=== PATIENT | male | born 1960 | race Caucasian/White ===

== ENCOUNTER 2018-06-17 18:26 | Emergency (ER) | payer BC, OTHER ==
[~2018-06-17] VITALS: Ht 180.3 cm; Wt 84.9 kg
[~2018-06-17 18:26] MED LIST: CLON1TAB5 PO; FLUT0.0529 NAE; OMEP40CA PO; SERT-234 PO
[2018-06-17 18:28] VITALS: TEMP 36.7; Ht 180.3 cm; Wt 84.9 kg
[2018-06-17] MEDS ORDERED: ONDANSETRON INJ 2 MG/ML 2 ML VIAL IV STA (18:42)
[2018-06-17] MEDS ORDERED: MoRPHine SULFATE 4 MG/ML 1 ML CARP\\VIAL IV STA (18:42)
[2018-06-17] MEDS ORDERED: OPTIRAY 320 IV PRN (18:45)
--- NOTE | 2018-06-17 18:52 | EMERGENCY ROOM VISIT NOTE ---
History Report prepared by Cally: Vikram Banerjee Under the Supervision of: Dr. Javier Pablo M.D. First contact with patient: 18:31 Chief Complaint: FLANK PAIN Stated Complaint: UPPER R FLANK PAIN POST SURGERY History of Present Illness The patient is a 58 year old male who presents to the Emergency Room with complaints of worsening RUQ abdominal pain that began today. Patient states the pain is worsened with deep breaths and movement. He adds he had a bowel resection and hernia repair 22 days ago at [facility]. He states the surgery was performed by Dr. Mcginnis. Patient adds he also had a colostomy bag placed. He states he was discharged from the hospital 15 days ago. He adds that two surgical danielle fell out yesterday. Past medical history includes an appendectomy which he states his pain feels similar to. He adds he has intermittent nausea. Patient adds he has an allergy to Wellbutrin. Patient is present with his . He states he has been eating and drinking normally. Patient denies any other pain over his abdomen, chest pain, rashes, leg swelling , fevers, and bowel symptoms. He denies any other medical problems. He denies taking any other medications. Source of History: patient Onset: Today Position: abdomen (RUQ) Timing: worsening Modifying Factors (Worsening): breathing (Deep breaths), movement Modifying Factors (Relieving): other (None) Associated Symptoms: + nausea, No fevers, No chest pain, No rash Note: Negative bowel symptoms and leg swelling. Review of Systems See HPI for pertinent positives and negatives. A total of ten systems were reviewed and were otherwise negative. Past Medical & Surgical Medical Problems: (1) Appendicitis Surgical Problems: (1) Hx of appendectomy Family History Kidney disease Social History Smoking Status: Never Smoker Marital Status: Housing Status: lives with significant other Occupation Status: employed Current/Historical Medications Scheduled Clonazepam (Klonopin), 1 MG PO HS Omeprazole (Prilosec), 40 MG PO BID Sertraline (Zoloft), 100 MG PO HS Scheduled PRN Fluticasone Propionate (Nasal) (Flonase), 2 SPRAY BRITTANI QAM PRN for Nasal Congestion Oxycodone Hcl (Oxycodone Hcl), 1 TAB PO QID PRN for Pain Allergies Coded Allergies: No Known Allergies (Unverified , 03/18/15) Physical Exam Vital Signs Date Time Temp Pulse Resp B/P (MAP) Pulse Ox O2 Delivery O2 Flow Rate FiO2 06/17/18 22:19 77 15 112/69 100 Room Air 06/17/18 20:53 75 17 126/87 99 Room Air 06/17/18 20:06 69 06/17/18 20:00 71 17 124/68 99 Room Air 06/17/18 18:28 36.7 69 17 133/86 95 Room Air Physical Exam GENERAL: Awake, alert, well-appearing, in no distress HENT: Normocephalic, atraumatic. Oropharynx unremarkable. EYES: Normal conjunctiva. Sclera non-icteric. NECK: Supple. No nuchal rigidity. RESPIRATORY: Clear to auscultation. No wheezes. Normal respiratory effort. CARDIAC: Normal rate. Normal rhythm. Extremities warm and well perfused. GI: Healing midline surgical incision without erythema. Danielle in place. 6cm RUQ incision with danielle with very mild surrounding erythema, no fluctuance, and significant tenderness to palpation. RLQ UMA drain with trace blood serous output. Two LLQ prior drain wounds healing without signs of infection otherwise soft, non-distended. No rebound or guarding. No masses. RECTAL: Deferred. MUSCULOSKELETAL: Atraumatic. Chest examination reveals no tenderness. The back is symmetrical on inspection without obvious abnormality. There is no CVA tenderness to palpation. LOWER EXTREMITIES: Calves are equal size bilaterally and non-tender. No edema NEURO: Normal sensorium. No sensory or motor deficits noted. SKIN: Warm and dry. No rash or jaundice noted. Medical Decision & Procedures ER Provider Diagnostic Interpretation: Radiology results as stated below per my review and radiologist interpretation: CT ABD/PELVIS IV CONTRAST ONLY CLINICAL HISTORY: Worsening right upper quadrant abdominal pain. History of multiple surgeries. COMPARISON STUDY: 06/10/2015 TECHNIQUE: Following the IV administration of 118 mL of Optiray-320, CT scan of the abdomen and pelvis was performed from the lung bases to the proximal femurs. Images are reviewed in the axial, sagittal, and coronal planes. IV contrast was administered without complication. A dose lowering technique was utilized adhering to the principles of ALARA. CT DOSE: 658.99 mGy.cm FINDINGS: Lower chest: There are right basilar airspace opacities likely atelectatic Liver: The contrast-enhanced liver is normal in size, contour, and attenuation. There is no intrahepatic biliary ductal dilatation. The hepatic veins and portal veins are patent. Gallbladder: Surgically absent Spleen: Normal in size and attenuation. Pancreas: Unremarkable. Adrenal glands: Unremarkable. Kidneys: There is a 9 mm upper pole left renal hypodensity likely representing a cyst Bowel: There are extensive postsurgical changes of the bowel. There are multiple anastomotic suture lines present. There is a focally dilated right upper quadrant bowel loop with air-fluid level measuring 8.4 cm. This appears to be at the level of anastomosis. Peritoneum: There is no intraperitoneal free air or abdominal ascites. Vasculature: An IVC filter is visualized. Adenopathy: None. Pelvic viscera: The bladder, and pelvic viscera are unremarkable. Skeletal structures: There are postsurgical changes present within the spine. There is an old right ischio pubic ring fracture. There are anterior abdominal wall fluid collections likely postsurgical. Bilateral anterior abdominal wall drains are visualized. There also appears to be a pancake-like intraperitoneal anterior abdominal fluid collection measuring 76 x 9 x 81 mm. It is not possible to determine whether these fluid collections are infected. There are T10 and L2 vertebral body fractures IMPRESSION: 1. Difficult study to interpret secondary to the lack of orally administered contrast, the extensive postsurgical changes, and the lack of relevant surgical history 2. Anterior abdominal wall surgical drain. 3. Anterior abdominal wall fluid collections likely postsurgical. It is not possible to determine whether these are sterile or infected. 4. Pancake-like anterior intraperitoneal abdominal fluid collection measuring 79 x 9 x 81 mm. Again it is not possible to determine with this collection is infected 5. Focally dilated right upper quadrant bowel loop containing an air-fluid level. This likely represents a small bowel loop. This appears to be at a surgically created anastomosis. 6. Postsurgical changes of a thoracoabdominal spinal rodding. T10 and L2 vertebral body fractures. Old right ischio pubic ring fracture. Electronically signed by: Porter Pro M.D. 06/17/2018 9:[address] ANGIOGRAM OF THE CHEST CLINICAL HISTORY: Shortness of breath. Possible pulmonary embolism. ATYPICAL CHEST PAIN COMPARISON STUDY: No previous studies for comparison. TECHNIQUE: Following the IV administration of 118 mL of Optiray-320, CT angiogram of the thorax was performed from the thoracic inlet to the lung bases utilizing the pulmonary embolus protocol. Images are reviewed in the axial, sagittal, and coronal planes. IV contrast was administered without complication. MIP imaging was performed. A dose lowering technique was utilized adhering to the principles of ALARA. CT DOSE: FINDINGS: No pathologically enlarged axillary mediastinal or hilar lymph nodes were visualized. There was no evidence of thoracic aortic dilatation. There were no pulmonary artery filling defects to indicate acute pulmonary embolism. No pleural effusions are visualized. There are right lower lobe airspace opacities have an atelectatic configuration. Mild left basilar atelectatic changes are also evident. There is scattered bilateral micronodules. There is a 4 mm right middle lobe nodule abutting the fissure. There are postsurgical changes of midline sternotomy. There are postsurgical changes of a thoracoabdominal spinal rodding. There are old right-sided rib fractures. IMPRESSION: 1. No evidence of acute pulmonary embolism 2. No evidence of pathologic adenopathy 3. Scattered bilateral pulmonary micronodules. 4 mm right middle lobe perifissural nodule. In a high risk patient, 12 month follow-up is optional. 4. Right basilar parenchymal opacities having a configuration suggestive of atelectasis. Electronically signed by: Porter Pro M.D. 06/17/2018 9:35 PM Laboratory Results 06/17/18 19:41 Red Blood Count 3.81, Mean Corpuscular Volume 91.1, Mean Corpuscular Hemoglobin 29.9, Mean Corpuscular Hemoglobin Concent 32.9, Mean Platelet Volume 10.0, Neutrophils (%) (Auto) 66.5, Lymphocytes (%) (Auto) 18.6, Monocytes (%) (Auto) 6.2, Eosinophils (%) (Auto) 7.7, Basophils (%) (Auto) 0.5, Neutrophils # (Auto) 5.52, Lymphocytes # (Auto) 1.54, Monocytes # (Auto) 0.51, Eosinophils # (Auto) 0.64, Basophils # (Auto) 0.04 06/17/18 19:41 Test 06/17/18 19:41 06/17/18 20:00 White Blood Count 8.29 K/uL (4.8-10.8) Red Blood Count 3.81 M/uL (4.7-6.1) Hemoglobin 11.4 g/dL (14.0-18.0) Hematocrit 34.7 % (42-52) Mean Corpuscular Volume 91.1 fL (80-100) Mean Corpuscular Hemoglobin 29.9 pg (25-34) Mean Corpuscular Hemoglobin Concent 32.9 g/dl (32-36) Platelet Count 357 K/uL (130-400) Mean Platelet Volume 10.0 fL (7.4-10.4) Neutrophils (%) (Auto) 66.5 % Lymphocytes (%) (Auto) 18.6 % Monocytes (%) (Auto) 6.2 % Eosinophils (%) (Auto) 7.7 % Basophils (%) (Auto) 0.5 % Neutrophils # (Auto) 5.52 K/uL (1.4-6.5) Lymphocytes # (Auto) 1.54 K/uL (1.2-3.4) Monocytes # (Auto) 0.51 K/uL (0.11-0.59) Eosinophils # (Auto) 0.64 K/uL (0-0.5) Basophils # (Auto) 0.04 K/uL (0-0.2) RDW Standard Deviation 42.4 fL (36.4-46.3) RDW Coefficient of Variation 12.6 % (11.5-14.5) Immature Granulocyte % (Auto) 0.5 % Immature Granulocyte # (Auto) 0.04 K/uL (0.00-0.02) Prothrombin Time 10.6 SECONDS (9.0-12.0) Prothromb Time International Ratio 1.0 (0.9-1.1) Activated Partial Thromboplast Time 24.6 SECONDS (21.0-31.0) Partial Thromboplastin Ratio 0.9 Anion Gap 8.0 mmol/L (3-11) Est Creatinine Clear Calc Drug Dose 98.6 ml/min Estimated GFR () 110.5 Estimated GFR (Non- 95.4 BUN/Creatinine Ratio 22.2 (10-20) Calcium Level 8.6 mg/dl (8.5-10.1) Total Bilirubin 0.2 mg/dl (0.2-1) Direct Bilirubin < 0.1 mg/dl (0-0.2) Aspartate Amino Transf (AST/SGOT) 10 U/L (15-37) Alanine Aminotransferase (ALT/SGPT) 20 U/L (12-78) Alkaline Phosphatase 84 U/L (45-117) Troponin I < 0.015 ng/ml (0-0.045) Total Protein 7.9 gm/dl (6.4-8.2) Albumin 2.8 gm/dl (3.4-5.0) Lipase 119 U/L (73-393) Urine Color DK YELLOW Urine Appearance CLOUDY (CLEAR) Urine pH 5.0 (4.5-7.5) Urine Specific [place] 1.035 (1.000-1.030) Urine Protein TRACE (NEG) Urine Glucose (UA) NEG (NEG) Urine Ketones NEG (NEG) Urine Occult Blood NEG (NEG) Urine Nitrite NEG (NEG) Urine Bilirubin NEG (NEG) Urine Urobilinogen NEG (NEG) Urine Leukocyte Esterase NEG (NEG) Urine WBC (Auto) 1-5 /hpf (0-5) Urine RBC (Auto) 0-4 /hpf (0-4) Urine Hyaline Casts (Auto) 1-5 /lpf (0-5) Urine Epithelial Cells (Auto) 10-20 /lpf (0-5) Urine Bacteria (Auto) NEG (NEG) Laboratory results reviewed by me Medications Administered Medications (Trade) Dose Ordered Sig/Jacque Route Start Time Stop Time Status Last Admin Dose Admin Ondansetron HCl (Zofran Inj) 4 mg NOW STAT IV 06/17/18 18:42 06/17/18 18:44 DC 06/17/18 19:46 4 MG Morphine Sulfate (MoRPHine SULFATE INJ) 4 mg NOW STAT IV 06/17/18 18:42 06/17/18 18:44 DC 06/17/18 19:47 4 MG ECG Per My Interpretation Indication: abdominal pain Rate (beats per minute): 76 Rhythm: normal sinus Findings: other (Normal axis, normal intervals, no ST segment elevation) Comparison ECG Date: 07/17/15 Change: no significant change ED Course 1831: The patient was evaluated in room B2. A complete history and physical exam was performed. 1937: I reevaluated the patient and updated him on his findings. He states his pain has improved. He is awaiting a CT scan. 2257: I reevaluated the patient. I informed him that Dr. Cortes recommended he have a follow-up appointment on Tuesday. Discussed results and discharge instructions. He verbalized understanding and agreement. The patient is ready for discharge. Medical Decision Prior records/ancillary studies reviewed. Triage Nursing notes reviewed. Differential diagnosis: Etiologies such as appendicitis, diverticulitis, PUD, biliary pathology, UTI, pancreatitis, obstruction, mesenteric ischemia, aortic pathology, infections, inflammatory bowel disease, renal colic, as well as others were entertained. Patient presents with complex surgical history of multiple abdominal surgeries last the beginning of the month. Worsening right upper quadrant pain localized over the last several days. No new trauma reported. Slight nausea at times but no vomiting or diarrhea. Eating well. No fevers reported. States he does have some shortness of breath. No other chest pain. Given complex surgical history and right upper quadrant abdominal pain CT the abdomen pelvis was completed along with blood work. Concern for possible intra-abdominal infection or per surgical complication. Does not appear septic. No significant leukocytosis. Liver function and renal function appear within normal limits. Pain is improved after 1 dose of morphine. Afebrile vitals are good. Labs are unremarkable. Discussed CT findings of a small anterior fluid collection with [facility]. Given his clinical picture they recommend close follow-up as already scheduled on Tuesday. Discussed return precautions with the patient was agreeable with this along with his . Will prescribe additional pain medicine to get him over until his appointment then. Discussed these return criteria. PDMP was queried; no acute issues noted. States prior 5 mg oxycodone did not help and disposed of this prior prescription; given Rx for 10mg tabs. He is appropriate for outpatient follow-up. Medication Reconcilliation Current Medication List: was personally reviewed by me Blood Pressure Screening Patient's blood pressure: Normal blood pressure Blood pressure disposition: Did not require urgent referral Consults Time Called: 2022 Consulting Physician: Dr. Sebastian STACY on-call physician Returned Call: 2024 Discussed the patient's case. On-call physician is investigating the patient's records and going to call back with recommendations. Additional Consults: Time Called: [id number] Consulted Physician: Dr. Sebastian STACY on-call physician Returned Call: [phone] Additional Comments: Discussed the patient's case. He recommends outpatient follow-up on Tuesday and discharge. Impression Primary Impression: Abdominal pain, right upper quadrant Scribe Attestation The scribe's documentation has been prepared under my direction and personally reviewed by me in its entirety. I confirm that the note above accurately reflects all work, treatment, procedures, and medical decision making performed by me. Departure Information Dispostion Home / Self-Care Prescriptions Oxycodone Hcl (OXYCODONE HCL) 10 Mg Tab 1 TAB PO QID Y for Pain for 3 Days, #12 TAB Prov: Javier Pablo M.D. 06/17/18 Referrals Shoaib Viveros D.O. (PCP) Forms HOME CARE DOCUMENTATION FORM, IMPORTANT VISIT INFORMATION Patient Instructions My [facility] Additional Instructions Utilize the pain medicine prescribed to help with your pain. Do not utilize heavy machinery or drive while on it. If you have fevers, difficulty eating or drinking, severe constipation bloating or worsening abdominal pain please represent for reevaluation. The importance of follow-up on Tuesday with your surgeon is very high. If you have any concerns at any time please feel free to come back for reevaluation.
[2018-06-17 20:07] LABS: BASO % 0.5 %; BASO ABS # 0.04 K/uL (0-0.2); EOS % 7.7 %; EOS ABS # 0.64 K/uL (0-0.5); HEMATOCRIT 34.7 % (42-52); HEMOGLOBIN 11.4 g/dL (14.0-18.0); IG# 0.04 K/uL (0.00-0.02); LYMPH % 18.6 %; LYMPH ABS # 1.54 K/uL (1.2-3.4); MEAN CELL VOLUME 91.1 fL (80-100); MEAN CORPUSCULAR HEMOGLOBIN 29.9 pg (25-34); MEAN CORPUSCULAR HGB CONC 32.9 g/dl (32-36); MONO % 6.2 %; MONO ABS # 0.51 K/uL (0.11-0.59); NEUT % 66.5 %; NEUT ABS # 5.52 K/uL (1.4-6.5); PLATELET COUNT 357 K/uL (130-400); RED CELL DISTRIBUTION WIDTH CV 12.6 % (11.5-14.5); RED CELL DISTRIBUTION WIDTH SD 42.4 fL (36.4-46.3); WHITE BLOOD COUNT 8.29 K/uL (4.8-10.8)
[2018-06-17 20:21] LABS: PTT PATIENT 24.6 SECONDS (21.0-31.0)
[2018-06-17 20:32] LABS: ALBUMIN 2.8 gm/dl (3.4-5.0); ALKALINE PHOSPHATASE 84 U/L (45-117); ALT/SGPT 20 U/L (12-78); AST/SGOT 10 U/L (15-37); BLOOD UREA NITROGEN 19 mg/dl (7-18); CALCIUM 8.6 mg/dl (8.5-10.1); CARBON DIOXIDE 26 mmol/L (21-32); CREATININE 0.88 mg/dl (0.60-1.40); GLUCOSE 97 mg/dl (70-99); LIPASE 119 U/L (73-393); POTASSIUM 3.5 mmol/L (3.5-5.1); SODIUM 137 mmol/L (136-145); TOTAL PROTEIN 7.9 gm/dl (6.4-8.2)
--- NOTE | 2018-06-17 21:37 | DIAGNOSTIC IMAGING REPORT ---
CT ANGIOGRAM OF THE CHEST CLINICAL HISTORY: Shortness of breath. Possible pulmonary embolism. ATYPICAL CHEST PAIN COMPARISON STUDY: No previous studies for comparison. TECHNIQUE: Following the IV administration of 118 mL of Optiray-320, CT angiogram of the thorax was performed from the thoracic inlet to the lung bases utilizing the pulmonary embolus protocol. Images are reviewed in the axial, sagittal, and coronal planes. IV contrast was administered without complication. MIP imaging was performed. A dose lowering technique was utilized adhering to the principles of ALARA. CT DOSE: FINDINGS: No pathologically enlarged axillary mediastinal or hilar lymph nodes were visualized. There was no evidence of thoracic aortic dilatation. There were no pulmonary artery filling defects to indicate acute pulmonary embolism. No pleural effusions are visualized. There are right lower lobe airspace opacities have an atelectatic configuration. Mild left basilar atelectatic changes are also evident. There is scattered bilateral micronodules. There is a 4 mm right middle lobe nodule abutting the fissure. There are postsurgical changes of midline sternotomy. There are postsurgical changes of a thoracoabdominal spinal rodding. There are old right-sided rib fractures. IMPRESSION: 1. No evidence of acute pulmonary embolism 2. No evidence of pathologic adenopathy 3. Scattered bilateral pulmonary micronodules. 4 mm right middle lobe perifissural nodule. In a high risk patient, 12 month follow-up is optional. 4. Right basilar parenchymal opacities having a configuration suggestive of atelectasis. Electronically signed by: Porter Pro M.D. 06/17/2018 9:35 PM Dictated Date/Time: 06/17/2018 9:28 PM
--- NOTE | 2018-06-17 21:49 | DIAGNOSTIC IMAGING REPORT ---
CT ABD/PELVIS IV CONTRAST ONLY CLINICAL HISTORY: Worsening right upper quadrant abdominal pain. History of multiple surgeries. COMPARISON STUDY: 06/10/2015 TECHNIQUE: Following the IV administration of 118 mL of Optiray-320, CT scan of the abdomen and pelvis was performed from the lung bases to the proximal femurs. Images are reviewed in the axial, sagittal, and coronal planes. IV contrast was administered without complication. A dose lowering technique was utilized adhering to the principles of ALARA. CT DOSE: 658.99 mGy.cm FINDINGS: Lower chest: There are right basilar airspace opacities likely atelectatic Liver: The contrast-enhanced liver is normal in size, contour, and attenuation. There is no intrahepatic biliary ductal dilatation. The hepatic veins and portal veins are patent. Gallbladder: Surgically absent Spleen: Normal in size and attenuation. Pancreas: Unremarkable. Adrenal glands: Unremarkable. Kidneys: There is a 9 mm upper pole left renal hypodensity likely representing a cyst Bowel: There are extensive postsurgical changes of the bowel. There are multiple anastomotic suture lines present. There is a focally dilated right upper quadrant bowel loop with air-fluid level measuring 8.4 cm. This appears to be at the level of anastomosis. Peritoneum: There is no intraperitoneal free air or abdominal ascites. Vasculature: An IVC filter is visualized. Adenopathy: None. Pelvic viscera: The bladder, and pelvic viscera are unremarkable. Skeletal structures: There are postsurgical changes present within the spine. There is an old right ischio pubic ring fracture. There are anterior abdominal wall fluid collections likely postsurgical. Bilateral anterior abdominal wall drains are visualized. There also appears to be a pancake-like intraperitoneal anterior abdominal fluid collection measuring 76 x 9 x 81 mm. It is not possible to determine whether these fluid collections are infected. There are T10 and L2 vertebral body fractures IMPRESSION: 1. Difficult study to interpret secondary to the lack of orally administered contrast, the extensive postsurgical changes, and the lack of relevant surgical history 2. Anterior abdominal wall surgical drain. 3. Anterior abdominal wall fluid collections likely postsurgical. It is not possible to determine whether these are sterile or infected. 4. Pancake-like anterior intraperitoneal abdominal fluid collection measuring 79 x 9 x 81 mm. Again it is not possible to determine with this collection is infected 5. Focally dilated right upper quadrant bowel loop containing an air-fluid level. This likely represents a small bowel loop. This appears to be at a surgically created anastomosis. 6. Postsurgical changes of a thoracoabdominal spinal rodding. T10 and L2 vertebral body fractures. Old right ischio pubic ring fracture. Electronically signed by: Porter Pro M.D. 06/17/2018 9:48 PM Dictated Date/Time: 06/17/2018 9:35 PM
[2018-06-17] MEDS ORDERED: OXYC-164 PO (22:59)
[2018-06-17] MEDS ORDERED: OXYCODONE IR HOME PACK PO ONE (23:00)
[2018-06-17 23:30] VITALS: BP 127/70; PULSE 75; O2SAT 98
== END 2018-06-17 23:32 | disposition home or self-care (01) ==
LOC: C.EDB 18:27
DX: R10.11 Right upper quadrant pain (principal); Z98.890 Other specified postprocedural states; Z93.3 Colostomy status; Z79.899 Other long term (current) drug therapy

== ENCOUNTER 2018-06-30 14:31 | Emergency (ER) | payer BC, OTHER ==
[~2018-06-30] VITALS: Ht 180.3 cm; Wt 86.2 kg
[~2018-06-30 14:31] MED LIST changes: +CLON1TAB10 PO; -CLON1TAB5 PO
[2018-06-30 14:51] VITALS: TEMP 37; Ht 180.3 cm; Wt 86.2 kg
[2018-06-30] MEDS ORDERED: SODIUM CHLORIDE 0.9% 1000ML 1,000 ML IV STA (16:23)
[2018-06-30] MEDS ORDERED: MoRPHine SULFATE 4 MG/ML 1 ML CARP\\VIAL IV STA (16:23)
[2018-06-30] MEDS ORDERED: OPTIRAY 320 IV PRN (16:30)
--- NOTE | 2018-06-30 16:39 | EMERGENCY ROOM VISIT NOTE ---
ED Visit Note First contact with patient: 16:01 CHIEF COMPLAINT: Right-sided abdominal pain, pus drainage from surgical incision HISTORY OF PRESENTING ILLNESS: This is a 58-year-old male who presents the emergency department by private vehicle with his with complaint of right- sided abdominal pain and pus drainage from his surgical incision that started this morning. Patient states that he had abdominal surgery on May 26 at [facility] in [place] to have a bowel resection and colostomy reversal performed. He states that he had his adrian taken out approximately 2 weeks ago on 06/19. He states that he has been doing much better with regard to pain, and his activity tolerance was improving until today. He states that his abdominal pain is all on the right side of his abdomen, it feels bloated and full, and he feels like the pus drainage is coming from that side, stating when he pushes on that side of his abdomen pus comes out through the incision. He describes the pain as a pressure and ache, constant, worse with movement and bending at the waist, better with rest, currently rates as 6/10. He has been taking ibuprofen for his postsurgical pain and it had been well controlled until today. He denies any fevers, chills, or malaise. He denies any headaches , chest pain, shortness of breath, dizziness, syncope, back pain, nausea or vomiting, diarrhea, constipation, bloody or black stools, urinary symptoms, or unusual rash. REVIEW OF SYSTEMS: A complete 10 point review of systems was reviewed with the patient with pertinent positives and negatives as per history of present illness. All else were negative. PAST MEDICAL HISTORY: Reviewed in chart, see problem list below SOCIAL HISTORY: Lives at home with family. He denies tobacco use. ALLERGIES: No known allergies. PHYSICAL EXAM: CONSTITUTIONAL: Pleasant and cooperative. No acute distress. Mildly dehydrated , but otherwise well appearing and well nourished. HEENT: Normocephalic, atraumatic. Pupils equal, round and reactive to light, EOMI. TMs normal. Pharynx normal. Tacky mucous membranes. NECK: Supple, full active range of motion without discomfort. RESPIRATORY: Clear to auscultation bilaterally with no wheezing, crackles, rhonchi or stridor. Equal expansion bilaterally. CARDIOVASCULAR: Regular rate and rhythm with no murmurs, rubs or gallops. Normal peripheral perfusion. No edema. GASTROINTESTINAL: Well-healed surgical incisions across the abdomen both vertical and horizontal. There is a small open area just to the right of the umbilicus that is draining small amount of thin, cloudy yellow drainage. No foul odor noted. No erythema or swelling of the abdominal wall. Moderate tenderness to deep palpation of the abdomen throughout, most tender along the right upper and mid abdomen. Soft, nondistended. No palpable masses or HSM. Bowel sounds present in all quadrants. No CVA tenderness bilaterally. MUSCULOSKELETAL: Full range of motion of all joints without discomfort. INTEGUMENTARY: No rash or other significant dermatologic conditions noted. NEUROLOGIC: Alert and oriented X 4 with normal affect. Normal strength and sensation in all 4 extremities. No focal neurologic deficits noted. Normal speech. Normal gait observed. ED COURSE AND MEDICAL DECISION MAKING: CC: Patient presenting with complaint of right-sided abdominal pain, pus drainage from surgical incision DIFFERENTIAL DIAGNOSIS: Includes, but not limited to postsurgical infection, intra-abdominal abscess, peritonitis, small bowel obstruction, seroma, hematoma , incisional dehiscence, among others. INTERPRETATION OF LABS: No leukocytosis, mild anemia (consistent with baseline) , normal platelets, no significant electrolyte abnormalities, normal renal function, normal liver enzymes and lipase. Lactic acid within normal limits. UA negative for infection. IMAGING: CT OF THE ABDOMEN AND PELVIS WITH CONTRAST CLINICAL HISTORY: Right flank pain status post recent colostomy reversal. Purulent drainage from incision. COMPARISON STUDY: CT of the abdomen and pelvis June 17, 2018. TECHNIQUE: Following IV administration of 115 mL of Optiray-320, axial images of the abdomen and pelvis were obtained from the lung bases to the proximal femurs. Images were reviewed in the axial, sagittal, and coronal planes. IV contrast was administered without complication. A dose lowering technique was utilized adhering to the principles of ALARA. Oral contrast was administered. CT DOSE: 525.05 mGy.cm FINDINGS: The liver, spleen, adrenal glands, right kidney and pancreas are normal. Note is made of a 1.1 cm cyst within the upper pole of the left kidney. There is no biliary or pancreatic ductal dilatation status post cholecystectomy. Postoperative findings consistent with a right colon resection are noted. There are postoperative findings involving the anterior abdominal wall. An 8.1 x 0.8 cm elongated fluid collection within the right anterior abdominal wall, likely extraperitoneal, is noted. A more inferior midline collection now measures 4.5 x 0.9 cm. This component previously measured 7.6 x 0.9 cm on exam of June 17, 2018. Peripheral enhancement is noted. Overall, the amount of fluid within the anterior abdominal wall has slightly diminished since prior CT. There is no drainable collection. A dilated loop of bowel within the right upper quadrant is similar to exam of June 17, 2018. This likely reflects small bowel and may be an anastomosis. Contrast passed beyond this bowel loop. There is no evidence for a high-grade bowel obstruction. Old T10 and L2 compression fractures are noted. A sigmoid resection is noted. There are postoperative findings within the spine. Anterior abdominal wall infiltration is noted. IMPRESSION: 1. Extensive postoperative findings within the anterior abdominal wall with small rim-enhancing abdominal wall collections, likely extraperitoneal, as described above. Sterility of these collections cannot be assessed by CT. Overall, amount of intra-abdominal fluid slightly diminished since exam June 17, 2018. 2. No change in a dilated loop of bowel within the right upper quadrant, likely at an anastomosis. Contrast passes beyond the site. No evidence for a high-grade obstruction. MEDICATION RECONCILIATION: I attest that I have personally reviewed the patient 's current medication list. INITIAL VITAL SIGNS REVIEW: I reviewed the patient's initial vital signs and interpret them as follows: T: Afebrile; BP: Hypertensive; HR: Tachycardic; RR : Within normal limits; Pulse Ox: Within normal limits on room air. Blood pressure screening: The patient was found to have an elevated blood pressure, which was felt to be situational SUMMARY: Patient was evaluated at bedside, history and physical exam performed. Patient is alert and oriented, in no acute distress and nontoxic-appearing, resting calmly in stretcher. There is a moderate amount of thin purulent yellow fluid noted on the patient's dressing, with more expressed from small incisional opening with applied pressure to the abdominal wall. Drainage is not malodorous or feculent. There is diffuse abdominal tenderness to palpation, most tender along the right upper quadrant and right mid abdomen. Review of the patient's chart was performed, noting CT abdomen/pelvis with IV contrast 2 weeks ago for similar symptoms, is incompletely evaluated due to lack of oral contrast. Orders were placed at bedside for labs, UA, IV fluids for hydration, IV morphine for pain, CT abdomen/pelvis with IV and oral contrast to evaluate for intra-abdominal/postsurgical infection. Patient discussed with Dr. Jimenez, who agrees with my assessment and plan. Labs and imaging reviewed as above, multiple small fluid collections within the abdominal wall are noted, but no intra-abdominal abscess or notable infection, no bowel obstruction. No leukocytosis, normal lactic acid, patient has remained afebrile and nontoxic- appearing. I have a low suspicion for a serious bacterial infection at this time. I spoke on the phone with Dr. Magallon, trauma surgery at [facility] in [place], and discussed CT results and symptoms with her. She felt this most likely represents seroma, and as the patient has been nontoxic, felt that he could be safely discharged home and she will arrange an outpatient follow-up this coming week. Patient reassessed multiple times throughout ED stay, he has remained stable, his tachycardia is resolved after IV fluids, and he continues to be afebrile. His pain is improved after medications, but he is requesting something for home. He was given a dose of Percocet in the ED, sent home with a home pack for oxycodone, and Rx for oxycodone was sent to the pharmacy. He was educated regarding this medication. Patient was updated on all results and plan for discharge, he verbalized understanding, was comfortable with this plan. He was encouraged to keep his follow-up appointment with his surgeon when this is scheduled. Patient was also given strict return precautions should his symptoms worsen, he verbalized understanding. Patient was discharged home in stable condition and ambulatory. Problem List Medical Problems: (1) Appendicitis Status: Resolved Surgical Problems: (1) Hx of appendectomy Status: Resolved Current/Historical Medications Scheduled Famotidine (Pepcid), 20 MG PO DAILY Sertraline (Zoloft), 100 MG PO HS Scheduled PRN Oxycodone Ir (Roxicodone Ir), 1 TAB PO Q4H PRN for Severe Pain Allergies Coded Allergies: No Known Allergies (Unverified , 06/30/18) Vital Signs Date Time Temp Pulse Resp B/P (MAP) Pulse Ox O2 Delivery O2 Flow Rate FiO2 06/30/18 21:50 75 18 163/98 99 06/30/18 19:39 80 18 145/82 100 Room Air 06/30/18 17:33 75 18 142/88 100 Room Air 06/30/18 17:09 78 06/30/18 14:51 37.0 112 18 137/87 97 Room Air Laboratory Results 06/30/18 17:42 Red Blood Count 3.93, Mean Corpuscular Volume 91.9, Mean Corpuscular Hemoglobin 29.8, Mean Corpuscular Hemoglobin Concent 32.4, Mean Platelet Volume 10.0, Neutrophils (%) (Auto) 63.5, Lymphocytes (%) (Auto) 20.6, Monocytes (%) (Auto) 8.9, Eosinophils (%) (Auto) 6.0, Basophils (%) (Auto) 0.8, Neutrophils # (Auto) 4.17, Lymphocytes # (Auto) 1.35, Monocytes # (Auto) 0.58, Eosinophils # (Auto) 0.39, Basophils # (Auto) 0.05 06/30/18 17:42 Test 06/30/18 17:09 06/30/18 17:42 Urine Color YELLOW Urine Appearance CLEAR (CLEAR) Urine pH 7.5 (4.5-7.5) Urine Specific Edmond 1.018 (1.000-1.030) Urine Protein NEG (NEG) Urine Glucose (UA) NEG (NEG) Urine Ketones NEG (NEG) Urine Occult Blood NEG (NEG) Urine Nitrite NEG (NEG) Urine Bilirubin NEG (NEG) Urine Urobilinogen NEG (NEG) Urine Leukocyte Esterase NEG (NEG) White Blood Count 6.55 K/uL (4.8-10.8) Red Blood Count 3.93 M/uL (4.7-6.1) Hemoglobin 11.7 g/dL (14.0-18.0) Hematocrit 36.1 % (42-52) Mean Corpuscular Volume 91.9 fL (80-100) Mean Corpuscular Hemoglobin 29.8 pg (25-34) Mean Corpuscular Hemoglobin Concent 32.4 g/dl (32-36) Platelet Count 322 K/uL (130-400) Mean Platelet Volume 10.0 fL (7.4-10.4) Neutrophils (%) (Auto) 63.5 % Lymphocytes (%) (Auto) 20.6 % Monocytes (%) (Auto) 8.9 % Eosinophils (%) (Auto) 6.0 % Basophils (%) (Auto) 0.8 % Neutrophils # (Auto) 4.17 K/uL (1.4-6.5) Lymphocytes # (Auto) 1.35 K/uL (1.2-3.4) Monocytes # (Auto) 0.58 K/uL (0.11-0.59) Eosinophils # (Auto) 0.39 K/uL (0-0.5) Basophils # (Auto) 0.05 K/uL (0-0.2) RDW Standard Deviation 44.6 fL (36.4-46.3) RDW Coefficient of Variation 13.1 % (11.5-14.5) Immature Granulocyte % (Auto) 0.2 % Immature Granulocyte # (Auto) 0.01 K/uL (0.00-0.02) Anion Gap 5.0 mmol/L (3-11) Est Creatinine Clear Calc Drug Dose 91.3 ml/min Estimated GFR () 102.6 Estimated GFR (Non- 88.5 BUN/Creatinine Ratio 16.9 (10-20) Lactic Acid Level 1.5 mmol/L (0.4-2.0) Calcium Level 8.9 mg/dl (8.5-10.1) Total Bilirubin 0.1 mg/dl (0.2-1) Direct Bilirubin < 0.1 mg/dl (0-0.2) Aspartate Amino Transf (AST/SGOT) 14 U/L (15-37) Alanine Aminotransferase (ALT/SGPT) 17 U/L (12-78) Alkaline Phosphatase 80 U/L (45-117) Total Protein 7.7 gm/dl (6.4-8.2) Albumin 2.9 gm/dl (3.4-5.0) Lipase 111 U/L (73-393) Medications Administered Medications (Trade) Dose Ordered Sig/Jacque Route Start Time Stop Time Status Last Admin Dose Admin Sodium Chloride 1,000 ml @ 999 mls/hr Q1H1M STAT IV 06/30/18 16:23 06/30/18 17:23 DC 06/30/18 17:29 999 MLS/HR Morphine Sulfate (MoRPHine SULFATE INJ) 4 mg NOW STAT IV 06/30/18 16:23 06/30/18 16:27 DC 06/30/18 17:30 4 MG Ketorolac Tromethamine (Toradol Inj) 15 mg NOW STAT IV 06/30/18 20:59 06/30/18 21:00 DC 06/30/18 21:25 15 MG Oxycodone/ Acetaminophen (Percocet 5-325mg Tab) 1 tab NOW ONCE PO 06/30/18 21:30 06/30/18 21:31 DC 06/30/18 21:31 1 TAB Oxycodone HCl (Roxicodone Immediate Rel 5MG Home Pack) 1 homepack UD ONCE PO 06/30/18 21:30 06/30/18 21:31 DC 06/30/18 21:31 1 HOMEPACK Departure Information Impression Primary Impression: Seroma, postoperative Additional Impression: Abdominal pain, generalized Dispostion Home / Self-Care Condition GOOD Prescriptions Oxycodone Ir (Roxicodone Ir) 5 Mg Tab 1 TAB PO Q4H Y for Severe Pain, #20 TAB Prov: Haydee Briggs CRNP 06/30/18 Referrals Frankie Pretty M.D. (PCP) Patient Instructions ED Abdominal Pain Unkn Cause, ED Seroma Post Op, [facility] Additional Instructions You have been evaluated and treated in the Emergency Department today for your abdominal drainage and pain. Laboratory results and imaging studies have ruled out any emergent causes for your symptoms which would warrant admission or surgery. Your symptoms are most likely consistent with a seroma, which is fluid buildup under the skin around the surgical site which can cause pain and can sometimes become infected. Please follow-up with your surgeon. You will be contacted to set up a follow- up appointment on either Tuesday or Tuesday of this week. You have been prescribed oxycodone 5 mg tablets to be taken 1 tablet every 4-6 hours as needed for SEVERE pain. This is a narcotic, do not drive, operate machinery, or drink alcohol while you are taking this medication. This medication may cause constipation when taken for prolonged period of time, you should take an [id number] stool softener such as Colace or Senokot while you are taking this medication to avoid this. For additional pain control, you can use the following [id number] medicines (if >12 yo): - Regular strength (325mg/tab) Tylenol (acetaminophen) 2 tabs every 4-6 hours as needed. Do not exceed 10 tablets in a 24 hour period. Avoid taking more than 3000 mg of Tylenol per day. This includes any other sources of acetaminophen you may take on a regular basis. - Regular strength (200 mg/tab) Advil (ibuprofen) 3 tabs every 6-8 hours as needed. Do not exceed a dose of 2400 mg per day. Drink plenty of fluids to stay well hydrated. Return to the emergency department for severe worsening abdominal pain, severe nausea/vomiting, vomiting blood, blood in your stool or urine, fevers/chills or feeling run down, the area around your incision becomes red/swollen/hot to the touch, severe dizziness or passing out, or any other concerns. Work Instructions Return To Work: 3 days Problem Qualifiers Primary Impression: Seroma, postoperative Surgical complication system/body Area: subcutaneous tissue
[2018-06-30] MEDS ORDERED: FAMO20TA11 PO (17:20)
[2018-06-30] MEDS ORDERED: SERT-234 PO (17:20)
[2018-06-30 17:54] LABS: BASO % 0.8 %; BASO ABS # 0.05 K/uL (0-0.2); EOS ABS # 0.39 K/uL (0-0.5); HEMATOCRIT 36.1 % (42-52); HEMOGLOBIN 11.7 g/dL (14.0-18.0); IG# 0.01 K/uL (0.00-0.02); LYMPH % 20.6 %; LYMPH ABS # 1.35 K/uL (1.2-3.4); MEAN CELL VOLUME 91.9 fL (80-100); MEAN CORPUSCULAR HEMOGLOBIN 29.8 pg (25-34); MEAN CORPUSCULAR HGB CONC 32.4 g/dl (32-36); MONO % 8.9 %; MONO ABS # 0.58 K/uL (0.11-0.59); NEUT % 63.5 %; NEUT ABS # 4.17 K/uL (1.4-6.5); PLATELET COUNT 322 K/uL (130-400); RED CELL DISTRIBUTION WIDTH CV 13.1 % (11.5-14.5); RED CELL DISTRIBUTION WIDTH SD 44.6 fL (36.4-46.3); WHITE BLOOD COUNT 6.55 K/uL (4.8-10.8)
[2018-06-30 18:14] LABS: ALBUMIN 2.9 gm/dl (3.4-5.0); ALKALINE PHOSPHATASE 80 U/L (45-117); ALT/SGPT 17 U/L (12-78); AST/SGOT 14 U/L (15-37); BLOOD UREA NITROGEN 16 mg/dl (7-18); CALCIUM 8.9 mg/dl (8.5-10.1); CARBON DIOXIDE 28 mmol/L (21-32); CREATININE 0.95 mg/dl (0.60-1.40); GLUCOSE 85 mg/dl (70-99); LIPASE 111 U/L (73-393); SODIUM 137 mmol/L (136-145); TOTAL PROTEIN 7.7 gm/dl (6.4-8.2)
--- NOTE | 2018-06-30 19:50 | DIAGNOSTIC IMAGING REPORT ---
CT OF THE ABDOMEN AND PELVIS WITH CONTRAST CLINICAL HISTORY: Right flank pain status post recent colostomy reversal. Purulent drainage from incision. COMPARISON STUDY: CT of the abdomen and pelvis June 17, 2018. TECHNIQUE: Following IV administration of 115 mL of Optiray-320, axial images of the abdomen and pelvis were obtained from the lung bases to the proximal femurs. Images were reviewed in the axial, sagittal, and coronal planes. IV contrast was administered without complication. A dose lowering technique was utilized adhering to the principles of ALARA. Oral contrast was administered. CT DOSE: 525.05 mGy.cm FINDINGS: The liver, spleen, adrenal glands, right kidney and pancreas are normal. Note is made of a 1.1 cm cyst within the upper pole of the left kidney. There is no biliary or pancreatic ductal dilatation status post cholecystectomy. Postoperative findings consistent with a right colon resection are noted. There are postoperative findings involving the anterior abdominal wall. An 8.1 x 0.8 cm elongated fluid collection within the right anterior abdominal wall, likely extraperitoneal, is noted. A more inferior midline collection now measures 4.5 x 0.9 cm. This component previously measured 7.6 x 0.9 cm on exam of June 17, 2018. Peripheral enhancement is noted. Overall, the amount of fluid within the anterior abdominal wall has slightly diminished since prior CT. There is no drainable collection. A dilated loop of bowel within the right upper quadrant is similar to exam of June 17, 2018. This likely reflects small bowel and may be an anastomosis. Contrast passed beyond this bowel loop. There is no evidence for a high-grade bowel obstruction. Old T10 and L2 compression fractures are noted. A sigmoid resection is noted. There are postoperative findings within the spine. Anterior abdominal wall infiltration is noted. IMPRESSION: 1. Extensive postoperative findings within the anterior abdominal wall with small rim-enhancing abdominal wall collections, likely extraperitoneal, as described above. Sterility of these collections cannot be assessed by CT. Overall, amount of intra-abdominal fluid slightly diminished since exam June 17, 2018. 2. No change in a dilated loop of bowel within the right upper quadrant, likely at an anastomosis. Contrast passes beyond the site. No evidence for a high-grade obstruction. Electronically signed by: Rafal Anderson M.D. 06/30/2018 7:49 PM Dictated Date/Time: 06/30/2018 7:38 PM
[2018-06-30] MEDS ORDERED: KETOROLAC TROMETHAMINE 30 MG/ML VIAL IV STA (20:59)
[2018-06-30] MEDS ORDERED: OXYC-90 PO (21:28)
[2018-06-30] MEDS ORDERED: OXYCODONE IR HOME PACK PO ONE (21:30)
[2018-06-30] MEDS ORDERED: OXYCODONE/ACETAMINOPHEN 5-325 TAB PO ONE (21:30)
[2018-06-30 21:50] VITALS: BP 163/98; PULSE 75; O2SAT 99
--- NOTE | 2018-07-03 22:34 | EMERGENCY ROOM VISIT NOTE ---
ED Visit Note First contact with patient: 22:30 Patient's called requesting results of the wound culture from the patient' s visit on 06/30/18. I did speak on the phone with the patient's and discussed the wound culture results as listed below. GRAM STAIN Final 07/01/18-1013 RESULT FEW WBCs SEEN RARE GRAM POSITIVE COCCI DEEP WOUND CULTURE Final 07/02/18-1154 Organism 1 STAPHYLOCOCCUS AUREUS QUANITY MODERATE SENS SENSITIVITY TO FOLLOW 1. STAPHYLOCOCCUS AUREUS Target Route Dose RX AB Cost M.I.C. IQ ------ ----- ------ -- ------ -------- - ------ TRIMET/SULFA S <=0.5/ 9.5 * OXACILLIN S 1 VANCOMYCIN S 1 ERYTHROMYCIN S <=0.5 TETRACYCLINE S <=4 CLINDAMYCIN S <=0.5 DAPTOMYCIN S <=0.5 S = SENSITIVE I = INTERMEDIATE R = RESISTANT The patient reports that he has been feeling better overall, he reports the wound is still draining, but the drainage has slowed down and has not become bloody or foul-smelling. His abdominal pain has improved. He has not had any fevers or chills. Given the patient's clinical improvement and small amount of staph aureus, which may be a normal finding of skin tamara, I do not feel any antibiotic treatment is warranted at this time. I did encourage the patient to keep his follow-up this week with his surgeon. Patient and his verbalized understanding of this information and were comfortable with this plan.
== END 2018-06-30 21:51 | disposition home or self-care (01) ==
LOC: C.EDB 14:33 → C.EDA 21:51
DX: K91.872 Postprocedural seroma of a digestive system organ or structure following a digestive system procedure (principal); R10.84 Generalized abdominal pain